=== PATIENT | female | born 1980 ===

== ENCOUNTER 2024-03-07 07:04 | Day surgery (SDC) | payer OTHER ==
[2024-02-26 10:15] LABS: URINE APPEARANCE Cloudy; URINE BILIRRUBIN Negative (NEGATIVE); URINE BLOOD Negative; URINE COLOR Yellow; URINE GLUCOSE Negative (NEGATIVE); URINE KETONE Trace (NEGATIVE); URINE LEUKOCYTE Small; URINE NITRATE Negative; URINE PROTEIN Negative (NEGATIVE); URINE UROBILINOGEN 0.2 E.U./dl
[2024-02-26 10:19] LABS: URINE BACTERIA 3519.1 uL (0.0-1933); URINE EPITHELIAL CELLS 43.7 uL (0.0-38.8); URINE RBC 27.1 uL (0.0-20.8); URINE WBC 19.3 uL (0.0-23.2)
[2024-02-26 10:20] LABS: HEMOGLOBIN 14.3 g/dL (12.0-15.00); MEAN CELL VOLUME 92.6 fL (80.00-100.00); MEAN CORPUSCULAR HEMOGLOBIN 30.7 pg (27.00-32.0); MEAN CORPUSCULAR HGB CONC 33.1 g/dl (32.0-36.0); PLATELET COUNT 193 K/uL (150-450); RED BLOOD COUNT 4.64 M/uL (4.00-6.00); RED CELL DISTRIBUTION WIDTH 13.7 % (11.5-14.5)
[2024-02-26 10:33] LABS: URINE CAST 0.15 uL (0.0-1.40)
[2024-02-26 10:51] LABS: INR 1.03; PARTIAL THROMBOPLASTIN TIME 27.9 SECONDS (22.0-34.0); PROTHROMBIN TIME 11.2 SECONDS (9.0-11.5)
[2024-02-26 11:16] LABS: ALBUMIN 4.3 gm/dL (3.4-5.0); CALCIUM 9.9 mg/dL (8.5-10.1); CREATININE SERUM 1.04 mg/dL (0.55-1.02); GFR 58.11; POTASSIUM 4.43 mEq/L (3.5-5.1)
[2024-03-07] MEDS ORDERED: LIDOCAINE HCL 1%/EPINEPHRINE 20ML VIAL IJ ONE (11:00)
[2024-03-07] MEDS ORDERED: POVIDONE-IODINE SCRUB 118 ML BOTT TOP ONE (11:00)
[2024-03-07] MEDS ORDERED: POVIDONE-IODINE 118 ML BOTT TOP ONE (11:00)
[2024-03-07] MEDS ORDERED: CIPROFLOXACIN2.5 ML OTIC (11:45)
[2024-03-07] MEDS ORDERED: CEPHALEXIN500 M1 PO (11:46)
[2024-03-07] MEDS ORDERED: MORPHINE SULFATE 4 MG/ML VIAL IV ONE (12:15)
[2024-03-07] MEDS ORDERED: ONDANSETRON HCL 2 MG/ML VIAL IV ONE (12:15)
== END 2024-03-07 13:40 | disposition home or self-care (01) ==
LOC: CIR.AMB 07:04
PROVIDERS: ATTEND Otolaryngology Otology & Neurotology
DX: H72.822 Total perforations of tympanic membrane, left ear (principal)